=== PATIENT | female | born 1945 | race Caucasian/White ===

== ENCOUNTER 2024-02-28 09:44 | Inpatient (IN) | payer OTHER ==
[~2024-02-28] VITALS: Ht 157.5 cm; Wt 77.1 kg
[2024-02-28 11:16] LABS: Basophils # (auto) 0 10 ^3/uL (0-0.2); Basophils % (auto) 0.7 % (0.0-2.0); Eosinophils # (auto) 0.1 10 ^3/uL (0-0.8); Eosinophils % (auto) 1.6 % (0.0-7.0); Hematocrit 40.4 % (36.0-46.0); Hemoglobin 13.9 g/dL (12.2-16.2); Lymphocytes % (auto) 14.3 % (10.0-50.0); Mean Corpuscular Hemoglobin 29.1 pg (28.0-32.0); Mean Corpuscular Hgb Conc. 34.4 g/dL (32.0-36.0); Mean Corpuscular Volume 84.6 fL (80.0-100.0); Monocytes # (auto) 0.5 10 ^3/uL (0-1.3); Monocytes % (auto) 6.9 % (0.0-12.0); Neutrophils # (auto) 5.4 10 ^3/uL (1.6-8.6); Neutrophils % (auto) 76.5 % (37.0-80.0); Nucleated Red Blood Cells % 0.1 %; Platelet Count (auto) 259 10^3/uL (140-450); Red Blood Cells 4.78 10^6/uL (4.0-5.20); Red Cell Distribution Width 14.9 % (11.8-14.3)
[2024-02-28 11:33] LABS: Alanine Aminotransferase 342 U/L (7-40); Albumin 4.5 g/dL (3.2-4.8); Alkaline Phosphatase 381 U/L (46-116); Anion Gap 10 (5-15); Aspartate Aminotransferase 331 U/L (13-40); BUN/Creatinine Ratio 8.9 (10.0-20.0); Bilirubin, Total 4.3 mg/dL (0.2-1.0); Blood Urea Nitrogen 11 mg/dL (9-23); Calcium 10.1 mg/dL (8.7-10.4); Carbon Dioxide 23 mmol/L (20-30); Chloride 106 mmol/L (98-107); Glucose 99 mg/dL (74-106); Potassium 4.3 mmol/L (3.5-5.1); Sodium 139 mmol/L (136-145); Total Protein 7.5 g/dL (5.7-8.2)
[2024-02-28 11:43] LABS: Urine Bacteria FEW /hpf (None Seen); Urine Blood TRACE /uL (Negative); Urine Clarity Ex.Turbid (Clear); Urine Color Dark-Orange (Yellow); Urine Hyaline Cast FEW /lpf (0 - 2); Urine Mucus FEW (None Seen); Urine Protein, UAD 1+ (Negative); Urine Specific Gravity 1.024 (1.001-1.035); Urine Urobilinogen 4 mg/dL (Negative); Urine WBC 12 /hpf (0 - 5); Urine pH 5.5 (5.0-9.0)
[2024-02-28] MEDS: SODIUM CHLORIDE 0.9% 500 ML IVB ONE (13:45)
[2024-02-28] MEDS: SODIUM CHLORIDE 0.9% 1,000 ML IV SCH (16:30)
[2024-02-28 17:20] LABS: Triglycerides 107 mg/dL (< 150)
[2024-02-28 17:21] LABS: LDL Cholesterol 131 mg/dL (< 100)
[2024-02-28 17:22] LABS: Cholesterol 222 mg/dL (< 200); HDL Cholesterol 71 mg/dL (40-59)
[2024-02-28] MEDS: levoFLOXacin 500MG 100 ML IV ONE (20:49)
[2024-02-28 23:24] VITALS: PULSE 68; RESP 17; O2SAT 96
[2024-02-28] MEDS ORDERED: PAR20T PO (23:44)
[2024-02-28] MEDS ORDERED: LEVO-848 PO (23:44)
[2024-02-28] MEDS ORDERED: ESOM1CAP37 PO (23:44)
[2024-02-28] MEDS ORDERED: AML5T PO (23:44)
[2024-02-29 06:38] LABS: Basophils # (auto) 0.1 10 ^3/uL (0-0.2); Basophils % (auto) 0.9 % (0.0-2.0); Eosinophils # (auto) 0.1 10 ^3/uL (0-0.8); Eosinophils % (auto) 2.2 % (0.0-7.0); Hematocrit 35.4 % (36.0-46.0); Hemoglobin 11.6 g/dL (12.2-16.2); Lymphocytes # (auto) 1.7 10 ^3/uL (0.4-5.4); Lymphocytes % (auto) 26.3 % (10.0-50.0); Mean Corpuscular Hemoglobin 27.8 pg (28.0-32.0); Mean Corpuscular Hgb Conc. 32.7 g/dL (32.0-36.0); Monocytes # (auto) 0.6 10 ^3/uL (0-1.3); Monocytes % (auto) 8.6 % (0.0-12.0); Neutrophils # (auto) 4.1 10 ^3/uL (1.6-8.6); Platelet Count (auto) 220 10^3/uL (140-450); Red Blood Cells 4.17 10^6/uL (4.0-5.20); Red Cell Distribution Width 14.8 % (11.8-14.3); White Blood Cell 6.6 10^3/uL (4.4-10.8)
[2024-02-29 06:42] LABS: Alanine Aminotransferase 212 U/L (7-40); Albumin 3.7 g/dL (3.2-4.8); Alkaline Phosphatase 287 U/L (46-116); Anion Gap 9 (5-15); Aspartate Aminotransferase 133 U/L (13-40); BUN/Creatinine Ratio 15.5 (10.0-20.0); Blood Urea Nitrogen 16 mg/dL (9-23); Calcium 9.2 mg/dL (8.7-10.4); Carbon Dioxide 22 mmol/L (20-30); Chloride 109 mmol/L (98-107); Glucose 93 mg/dL (74-106); Potassium 3.6 mmol/L (3.5-5.1); Sodium 140 mmol/L (136-145)
[2024-02-29 06:43] LABS: Bilirubin, Total 1.1 mg/dL (0.2-1.0); Total Protein 6.1 g/dL (5.7-8.2)
[2024-02-29 08:30] VITALS: BP 121/72; PULSE 63; RESP 17; TEMP 97.8; O2SAT 96
[2024-02-29 12:30] VITALS: BP 129/71; PULSE 58; RESP 17; TEMP 97.7; O2SAT 95
[2024-02-29 16:48] VITALS: BP 126/79; PULSE 68; RESP 19; TEMP 97.9; O2SAT 96
[2024-02-29 21:00] VITALS: BP 143/86; PULSE 63; TEMP 98.2; O2SAT 96
[2024-03-01 01:00] VITALS: BP 143/65; PULSE 61; RESP 20; TEMP 98; O2SAT 96
[2024-03-01 05:00] VITALS: BP 111/63; PULSE 70; RESP 20; TEMP 97.8; O2SAT 95
[2024-03-01 08:17] VITALS: BP 111/62; PULSE 55; RESP 16; TEMP 97.1; O2SAT 96
[2024-03-01 11:29] LABS: Basophils # (auto) 0.1 10 ^3/uL (0-0.2); Eosinophils # (auto) 0.1 10 ^3/uL (0-0.8); Eosinophils % (auto) 2.6 % (0.0-7.0); Hematocrit 37.4 % (36.0-46.0); Hemoglobin 12.4 g/dL (12.2-16.2); Lymphocytes # (auto) 1.6 10 ^3/uL (0.4-5.4); Lymphocytes % (auto) 29.6 % (10.0-50.0); Mean Corpuscular Hemoglobin 28.4 pg (28.0-32.0); Mean Corpuscular Hgb Conc. 33.2 g/dL (32.0-36.0); Mean Corpuscular Volume 85.4 fL (80.0-100.0); Monocytes # (auto) 0.4 10 ^3/uL (0-1.3); Monocytes % (auto) 7.4 % (0.0-12.0); Neutrophils # (auto) 3.2 10 ^3/uL (1.6-8.6); Neutrophils % (auto) 59.4 % (37.0-80.0); Platelet Count (auto) 250 10^3/uL (140-450); Red Blood Cells 4.38 10^6/uL (4.0-5.20); Red Cell Distribution Width 15.4 % (11.8-14.3); White Blood Cell 5.4 10^3/uL (4.4-10.8)
[2024-03-01 11:43] LABS: INR 1.01 (0.9-1.15); Partial Thromboplastin Time 23.1 SEC (24.5-34.5); Prothrombin Time 10.7 sec (9.3-11.8)
[2024-03-01 11:47] LABS: Alanine Aminotransferase 161 U/L (7-40); Albumin 4.2 g/dL (3.2-4.8); Alkaline Phosphatase 266 U/L (46-116); Anion Gap 7 (5-15); Aspartate Aminotransferase 64 U/L (13-40); BUN/Creatinine Ratio 15.4 (10.0-20.0); Bilirubin, Total 0.6 mg/dL (0.2-1.0); Blood Urea Nitrogen 14 mg/dL (9-23); Calcium 9.7 mg/dL (8.7-10.4); Carbon Dioxide 25 mmol/L (20-30); Chloride 109 mmol/L (98-107); Glucose 105 mg/dL (74-106); Potassium 3.8 mmol/L (3.5-5.1); Sodium 141 mmol/L (136-145)
[2024-03-01 11:48] LABS: Total Protein 6.8 g/dL (5.7-8.2)
[2024-03-01 13:00] VITALS: BP 114/60; PULSE 75; RESP 17; TEMP 96.6; O2SAT 95
[2024-03-01 16:35] VITALS: BP 122/65; PULSE 73; RESP 17; TEMP 97.3; O2SAT 98
[2024-03-01 18:11] LABS: COVID19 ANTIGEN SOFIA FIA NEGATIVE (NEGATIVE)
[2024-03-01] MEDS: PANTOPRAZOLE 40 MG TAB PO ONE (18:47)
[2024-03-01] MEDS: GADOTERATE MEG 10 MMOL/20ml INJ (0.5MMOL/ml) IV ONE (18:56)
[2024-03-01 21:00] VITALS: BP 121/62; PULSE 66; RESP 18; TEMP 98.2; O2SAT 96
[2024-03-01 22:40] LABS: Amphetamine Screen, Urine Neg (NEGATIVE); Barbiturate Scree,Urine Neg (NEGATIVE); Benzodiazephine Screen, Urine Neg (NEGATIVE); Cannabinoid Screen, Urine Neg (NEGATIVE); Cocaine Screen, Urine Neg (NEGATIVE); Opiate Scree,Urine Neg (NEGATIVE); Phencyclidine Screen, Urine Neg (NEGATIVE)
[2024-03-02 05:00] VITALS: BP 123/64; PULSE 62; RESP 18; O2SAT 97
[2024-03-02 05:22] LABS: Alanine Aminotransferase 119 U/L (7-40); Albumin 3.7 g/dL (3.2-4.8); Alkaline Phosphatase 212 U/L (46-116); Anion Gap 7 (5-15); Aspartate Aminotransferase 44 U/L (13-40); BUN/Creatinine Ratio 15.3 (10.0-20.0); Blood Urea Nitrogen 15 mg/dL (9-23); Calcium 9.4 mg/dL (8.7-10.4); Carbon Dioxide 26 mmol/L (20-30); Chloride 110 mmol/L (98-107); Glucose 99 mg/dL (74-106); Lipase 54 U/L (12-53); Potassium 4.1 mmol/L (3.5-5.1); Sodium 143 mmol/L (136-145)
[2024-03-02 05:23] LABS: Bilirubin, Total 0.5 mg/dL (0.2-1.0); Creatine Kinase IFCC 51 U/L (34-145); Total Protein 6.3 g/dL (5.7-8.2)
[2024-03-02] MEDS ORDERED: PANTOPRAZOLE 40 MG TAB PO SCH (06:00)
[2024-03-02] MEDS: LEVOTHYROXINE SODIUM 50 MCG TAB PO SCH (06:37)
[2024-03-02 08:55] VITALS: BP 135/67; PULSE 63; RESP 16; TEMP 96.8; O2SAT 94
[2024-03-02] MEDS: PANTOPRAZOLE 40 MG TAB PO SCH (09:57)
[2024-03-02] MEDS: PARoxetine 20 MG TAB PO SCH (09:57)
[2024-03-02] MEDS: amLODIPine BESYLATE 5 MG TAB PO SCH (09:58)
[2024-03-02] MEDS: SODIUM CHLORIDE 0.9% 1,000 ML IV SCH (10:15)
[2024-03-02 13:00] VITALS: BP 127/79; PULSE 56; RESP 16; TEMP 98; O2SAT 95
[2024-03-02 16:38] VITALS: BP 121/58; PULSE 61; RESP 16; TEMP 98; O2SAT 97
[2024-03-02 21:00] VITALS: BP 115/70; PULSE 60; RESP 20; TEMP 98.1; O2SAT 96
[2024-03-03] VITALS (7 sets, daily range): BP systolic 118–135; BP diastolic 59–79; PULSE 51–65; RESP 16–18; TEMP 97.1–98.3; O2SAT 94–96
[2024-03-03 07:16] LABS: Alanine Aminotransferase 94 U/L (7-40); Albumin 3.7 g/dL (3.2-4.8); Alkaline Phosphatase 194 U/L (46-116); Aspartate Aminotransferase 32 U/L (13-40); BUN/Creatinine Ratio 14.3 (10.0-20.0); Blood Urea Nitrogen 13 mg/dL (9-23); Calcium 9.2 mg/dL (8.7-10.4); Chloride 111 mmol/L (98-107); Glucose 88 mg/dL (74-106); Lipase 44 U/L (12-53); Potassium 3.9 mmol/L (3.5-5.1); Sodium 144 mmol/L (136-145)
[2024-03-03 07:17] LABS: Bilirubin, Total 0.5 mg/dL (0.2-1.0); Total Protein 6.3 g/dL (5.7-8.2)
[2024-03-03 07:36] LABS: Anion Gap 6 (5-15); Carbon Dioxide 27 mmol/L (20-30)
[2024-03-03 08:42] LABS: Hepatitis B Surface Antigen Negative (Negative)
[2024-03-03 09:03] LABS: Hepatitis A Ab IgM Negative
[2024-03-03 09:04] LABS: Hepatitis B Core IgM Negative; Hepatitis C Antibody Negative (Negative)
[2024-03-03 22:24] LABS: Rapid Influenza A Negative (Negative); Rapid Influenza B Negative (Negative)
[2024-03-04] VITALS (7 sets, daily range): BP systolic 123–156; BP diastolic 54–78; PULSE 52–69; RESP 16–20; TEMP 97.9–98.2; O2SAT 96–98
[2024-03-04 06:02] LABS: Alanine Aminotransferase 71 U/L (7-40); Alkaline Phosphatase 185 U/L (46-116); Anion Gap 5 (5-15); BUN/Creatinine Ratio 11.5 (10.0-20.0); Blood Urea Nitrogen 10 mg/dL (9-23); Calcium 9.3 mg/dL (8.7-10.4); Carbon Dioxide 28 mmol/L (20-30); Chloride 111 mmol/L (98-107); Glucose 87 mg/dL (74-106); Potassium 3.7 mmol/L (3.5-5.1); Sodium 144 mmol/L (136-145)
[2024-03-04 06:03] LABS: Albumin 3.7 g/dL (3.2-4.8); Aspartate Aminotransferase 23 U/L (13-40)
[2024-03-04 06:04] LABS: Bilirubin, Total 0.5 mg/dL (0.2-1.0)
[2024-03-04] MEDS: levoFLOXacin 500 MG TAB PO SCH (19:04)
[2024-03-05] VITALS (8 sets, daily range): BP systolic 117–158; BP diastolic 59–73; PULSE 51–71; RESP 18–20; TEMP 97.5–98.2; O2SAT 94–100
[2024-03-05] MEDS: IBUPROFEN 600 MG TAB PO PRN (11:53)
[2024-03-05 12:11] LABS: Alanine Aminotransferase 65 U/L (7-40); Albumin 4.2 g/dL (3.2-4.8); Alkaline Phosphatase 216 U/L (46-116); Anion Gap 6 (5-15); Aspartate Aminotransferase 20 U/L (13-40); BUN/Creatinine Ratio 6.3 (10.0-20.0); Bilirubin, Total 0.6 mg/dL (0.2-1.0); Blood Urea Nitrogen 6 mg/dL (9-23); Calcium 9.5 mg/dL (8.7-10.4); Carbon Dioxide 27 mmol/L (20-30); Chloride 108 mmol/L (98-107); Glucose 84 mg/dL (74-106); Potassium 3.8 mmol/L (3.5-5.1); Sodium 141 mmol/L (136-145)
[2024-03-05 12:47] LABS: Actin (Smooth Muscle) Antibody 4 Units (0-19); Anti-Centromere B Antibody <0.2 AI (0.0-0.9); Anti-Jo-1 Antibody <0.2 AI (0.0-0.9); Anti-dsDNA Antibody 1 IU/mL (0-9); Antichromatin Antibody <0.2 AI (0.0-0.9); Antiscleroderma-70 Antibody <0.2 AI (0.0-0.9); Mitochondrial (M2) Antibody <20.0 Units (0.0-20.0); RNP Antibody 0.2 AI (0.0-0.9); Sjogren's Anti-SS-A Antibody <0.2 AI (0.0-0.9); Sjogren's Anti-SS-B Antibody <0.2 AI (0.0-0.9); Smith Antibody <0.2 AI (0.0-0.9)
[2024-03-05] MEDS ORDERED: traMADol HCL 50 MG TAB PO PRN (13:30)
[2024-03-06] VITALS (7 sets, daily range): BP systolic 108–166; BP diastolic 52–65; PULSE 50–61; RESP 18–20; TEMP 97.8–98.4; O2SAT 96–98
[2024-03-07] VITALS (7 sets, daily range): BP systolic 115–147; BP diastolic 50–66; PULSE 50–56; RESP 15–18; TEMP 97.5–98.2; O2SAT 96–97
[2024-03-07] MEDS: amLODIPine BESYLATE 5 MG TAB PO SCH (10:10)
[2024-03-07 11:49] LABS: Albumin 4.2 g/dL (3.2-4.8); Alkaline Phosphatase 217 U/L (46-116); Anion Gap 5 (5-15); Aspartate Aminotransferase 16 U/L (13-40); Calcium 9.7 mg/dL (8.7-10.4); Carbon Dioxide 25 mmol/L (20-30); Chloride 109 mmol/L (98-107); Glucose 100 mg/dL (74-106); Potassium 3.6 mmol/L (3.5-5.1); Sodium 139 mmol/L (136-145)
[2024-03-07 11:50] LABS: Bilirubin, Total 0.6 mg/dL (0.2-1.0)
[2024-03-07 11:55] LABS: Alanine Aminotransferase 42 U/L (7-40)
[2024-03-07 12:05] LABS: BUN/Creatinine Ratio 5.1 (10.0-20.0); Blood Urea Nitrogen < 5 mg/dL (9-23)
[2024-03-08 01:10] VITALS: BP 117/60; PULSE 58; RESP 17; TEMP 98.1; O2SAT 95
[2024-03-08 05:00] VITALS: BP 129/54; PULSE 57; RESP 18; TEMP 98; O2SAT 96
[2024-03-08 09:00] VITALS: BP 115/60; PULSE 56; RESP 16; TEMP 98.1; O2SAT 97
[2024-03-08 12:38] VITALS: BP 123/70; PULSE 52; RESP 15; TEMP 98.2; O2SAT 96
[2024-03-08 17:30] VITALS: BP 124/75; PULSE 58; RESP 16; TEMP 97.8; O2SAT 99
[2024-03-08 21:00] VITALS: BP 120/53; PULSE 55; RESP 19; TEMP 98.6; O2SAT 95
[2024-03-09] VITALS (7 sets, daily range): BP systolic 114–142; BP diastolic 45–61; PULSE 54–69; RESP 15–18; TEMP 97.7–98.8; O2SAT 90–96
[2024-03-09 07:09] LABS: Alanine Aminotransferase 27 U/L (7-40); Alkaline Phosphatase 175 U/L (46-116); Anion Gap 8 (5-15); Calcium 9.1 mg/dL (8.7-10.4); Carbon Dioxide 27 mmol/L (20-30); Chloride 109 mmol/L (98-107); Potassium 3.4 mmol/L (3.5-5.1); Sodium 144 mmol/L (136-145)
[2024-03-09 07:11] LABS: Albumin 3.7 g/dL (3.2-4.8); Aspartate Aminotransferase 14 U/L (13-40); Glucose 96 mg/dL (74-106)
[2024-03-09 07:13] LABS: Bilirubin, Total 0.5 mg/dL (0.2-1.0); Total Protein 6.1 g/dL (5.7-8.2)
[2024-03-09 07:16] LABS: Basophils # (auto) 0.1 10 ^3/uL (0-0.2); Basophils % (auto) 0.8 % (0.0-2.0); Eosinophils # (auto) 0.1 10 ^3/uL (0-0.8); Hematocrit 35.5 % (36.0-46.0); Hemoglobin 11.9 g/dL (12.2-16.2); Lymphocytes # (auto) 2.6 10 ^3/uL (0.4-5.4); Lymphocytes % (auto) 39.6 % (10.0-50.0); Mean Corpuscular Hemoglobin 28.2 pg (28.0-32.0); Mean Corpuscular Hgb Conc. 33.5 g/dL (32.0-36.0); Mean Corpuscular Volume 84.2 fL (80.0-100.0); Monocytes # (auto) 0.5 10 ^3/uL (0-1.3); Monocytes % (auto) 7.7 % (0.0-12.0); Neutrophils # (auto) 3.2 10 ^3/uL (1.6-8.6); Neutrophils % (auto) 49.9 % (37.0-80.0); Nucleated Red Blood Cells % 0.2 %; Platelet Count (auto) 280 10^3/uL (140-450); Red Blood Cells 4.22 10^6/uL (4.0-5.20); Red Cell Distribution Width 14.8 % (11.8-14.3); White Blood Cell 6.5 10^3/uL (4.4-10.8)
[2024-03-09 07:20] LABS: BUN/Creatinine Ratio 5.1 (10.0-20.0); Blood Urea Nitrogen < 5 mg/dL (9-23)
[2024-03-10] VITALS (7 sets, daily range): BP systolic 116–135; BP diastolic 48–65; PULSE 18–62; RESP 16–20; TEMP 98–98.3; O2SAT 94–97
[2024-03-10 06:40] LABS: Basophils # (auto) 0.1 10 ^3/uL (0-0.2); Basophils % (auto) 0.9 % (0.0-2.0); Eosinophils # (auto) 0.2 10 ^3/uL (0-0.8); Eosinophils % (auto) 2.1 % (0.0-7.0); Hematocrit 35.5 % (36.0-46.0); Lymphocytes # (auto) 2.8 10 ^3/uL (0.4-5.4); Lymphocytes % (auto) 38.7 % (10.0-50.0); Mean Corpuscular Hemoglobin 28.5 pg (28.0-32.0); Mean Corpuscular Hgb Conc. 33.7 g/dL (32.0-36.0); Mean Corpuscular Volume 84.4 fL (80.0-100.0); Monocytes # (auto) 0.5 10 ^3/uL (0-1.3); Monocytes % (auto) 7.1 % (0.0-12.0); Neutrophils # (auto) 3.7 10 ^3/uL (1.6-8.6); Neutrophils % (auto) 51.2 % (37.0-80.0); Nucleated Red Blood Cells % 0.2 %; Platelet Count (auto) 282 10^3/uL (140-450); Red Cell Distribution Width 14.9 % (11.8-14.3); White Blood Cell 7.3 10^3/uL (4.4-10.8)
[2024-03-10 07:18] LABS: Alanine Aminotransferase 24 U/L (7-40); Albumin 3.6 g/dL (3.2-4.8); Alkaline Phosphatase 176 U/L (46-116); Anion Gap 3 (5-15); Aspartate Aminotransferase 12 U/L (13-40); BUN/Creatinine Ratio 5.2 (10.0-20.0); Bilirubin, Total 0.5 mg/dL (0.2-1.0); Blood Urea Nitrogen 5 mg/dL (9-23); Calcium 9.4 mg/dL (8.7-10.4); Carbon Dioxide 29 mmol/L (20-30); Chloride 110 mmol/L (98-107); Glucose 90 mg/dL (74-106); Potassium 3.3 mmol/L (3.5-5.1); Sodium 142 mmol/L (136-145); Total Protein 5.9 g/dL (5.7-8.2)
[2024-03-10] MEDS: POTASSIUM EFFERVESENT TAB 25 MEQ PO ONE (15:39)
[2024-03-11 01:00] VITALS: BP 116/54; PULSE 62; RESP 20; TEMP 98.6; O2SAT 98
[2024-03-11 03:30] VITALS: BP 120/61; PULSE 74; RESP 18; TEMP 98.6; O2SAT 94
[2024-03-11 04:08] VITALS: BP 120/61; PULSE 74; RESP 18; TEMP 98.6; O2SAT 94
== END 2024-03-11 05:00 | disposition short-term general hospital (02) | DRG 445 ==
LOC: ER 09:44 → OVERFLOW 16:24 → WEST WING 22:55
PROVIDERS: ADMIT Nurse Practitioner Family; ATTEND Nurse Practitioner Acute Care
DX: K80.70 Calculus of gallbladder and bile duct without cholecystitis without obstruction (principal); N39.0 Urinary tract infection, site not specified; K21.9 Gastro-esophageal reflux disease without esophagitis; E66.01 Morbid (severe) obesity due to excess calories; N28.1 Cyst of kidney, acquired; E03.9 Hypothyroidism, unspecified; I10 Essential (primary) hypertension; K57.30 Diverticulosis of large intestine without perforation or abscess without bleeding; K75.81 Nonalcoholic steatohepatitis (NASH); Z90.710 Acquired absence of both cervix and uterus; Z88.0 Allergy status to penicillin; Z82.49 Family history of ischemic heart disease and other diseases of the circulatory system; Z82.3 Family history of stroke; Z80.3 Family history of malignant neoplasm of breast; Z68.31 Body mass index [BMI] 31.0-31.9, adult; Z85.828 Personal history of other malignant neoplasm of skin
CPT/HCPCS: 36415; 71045; 71046; 74176; 74181; 76700; 78226; 80053; 80061; 80074; 80307; 81001; 82140; 82248; 82550; 82728; 83010; 83516; 83615; 83690; 84443; 85025; 85610; 85730; 86225; 86235; 87086; 87426; 87804; 96361; 96365; G0378; J1956

== ENCOUNTER 2024-08-19 09:01 | Emergency (ER) | payer OTHER ==
[~2024-08-19] VITALS: Ht 157.5 cm; Wt 77.5 kg
[~2024-08-19 09:01] MED LIST: AML5T PO; ESOM1CAP37 PO; LEVO-848 PO; PAR20T PO
[2024-08-19 10:02] VITALS: TEMP 98.1
[2024-08-19 10:03] VITALS: PULSE 85; RESP 20; O2SAT 98
[2024-08-19] MEDS: cloNIDine HCL 0.1 MG TAB PO ONE (10:07)
[2024-08-19] MEDS: ACETAMINOPHEN 325 MG TAB PO ONE (10:07)
--- NOTE | 2024-08-19 10:28 | ED.PDOC ---
History of Present Illness HPI Comments 78 y/o F, with PMHX of HTN presents to the ED for CC of high blood pressure. Patient states, that she has been experiencing abnormally high blood pressure reading since this morning; patient blood pressure at home was in the 170's. Patient endorses on, previously being prescribed Amlodipine for her hypertension and recently starting back up on the medication this week. Patient's blood pressure in triage was 156/71. Patient [id number] chest pain, shortness or breath, palpitations, dizziness, or headache. Chief Complaint: High Blood Pressure Time Seen by MD: 09:30 Primary Care Provider: NONE Reviewed Notes: Nurses Notes, Medications, Allergies Allergies: Coded Allergies: Morphine (Verified Allergy, Unknown, 02/28/24) Penicillins (Verified Allergy, Unknown, 02/28/24) Home Meds Reported Medications Levothyroxine Sodium (SYNTHROID TABLET) 50 Mcg Tb, 1 TAB PO DAILY, #30 TAB 5 Refills 02/28/24 Amlodipine Besylate (NORVASC TABLET) 5 Mg Tb, 1 TAB PO DAILY, #30 TAB 5 Refills 02/28/24 Esomeprazole Magnesium (Esomeprazole Magnesium) 20 Mg Cap, 20 MG PO, CAP 02/28/24 Paroxetine (PAXIL TABLET) 20 Mg Tb, 1 TAB PO DAILY, #30 TAB 5 Refills 02/28/24 Information Source: Patient Mode of Arrival: Ambulatory Severity: Mild Timing: Hours Duration: Since onset Prehospital treatment: None Past Medical History PAST MEDICAL HISTORY: GERD, HTN, Thyroid Surgical History: Hysterectomy, Tonsillectomy Family History Family History: Reviewed,noncontributory to illness Social History Smoker: Non-Smoker Alcohol: Denies ETOH Use Drugs: Denies Drug Use Lives In: Home Constitutional: denies: chills, diaphoresis, fatigue, fever, malaise, sweats, weakness, others EENTM: denies: blurred vision, double vision, ear bleeding, ear discharge, ear drainage, ear pain, ear ringing, eye pain, eye redness, hearing loss, mouth pain, mouth swelling, nasal discharge, nose bleeding, nose congestion, nose pain, photophobia, tearing, throat pain, throat swelling, voice changes, others Respiratory: denies: cough, hemoptysis, orthopnea, SOB at rest, shortness of breath, SOB with excertion, stridor, wheezing, others Cardiovascular: denies: chest pain, dizzy spells, diaphoresis, Dyspnea on exertion, edema, irregular heart beat, left arm pain, lightheadedness, palpitations, PND, syncope, others Gastrointestinal: denies: abdomen distended, abdominal pain, blood streaked bowels, constipated, diarrhea, dysphagia, difficulty swallowing, hematemesis, melena, nausea, poor appetite, poor fluid intake, rectal bleeding, rectal pain, vomiting, others Genitourinary: denies: abnormal vagina bleeding, burning, dyspareunia, dysuria, flank pain, frequency, hematuria, incontinence, pain, , vagina discharge, urgency, others Neurological: reports: headache; denies: dizziness, fainting, left sided numbness, left sided weakness, numbness, paresthesia, pre-existing deficit, right sided numbness, right sided weakness, seizure, speech problems, tingling, tremors, weakness, others Musculoskeletal: denies: back pain, gout, joint pain, joint swelling, muscle pain, muscle stiffness, neck pain, others Integumetry: denies: bruises, change in color, change in hair/nails, dryness, laceration, lesions, lumps, rash, wounds, others Allergic/Immunocompromised: denies: Difficulty Healing, Frequent Infections, Hives, Itching, others Hematologic/Lymphatic: denies: anemia, blood clots, easy bleeding, easy bruising, swollen glands, others Endocrine: denies: excessive hunger, excessive sweating, excessive thirst, excessive urination, flushing, intolerance to cold, intolerance to heat, unexplained weight gain, unexplained weight loss, others Psychiatric: denies: anxiety, bipolar disorder, depression, hopeless, panic disorder, schizophrenia, sleepless, suicidal, others All Other Systems: Reviewed and Negative Physical Exam General Appearance: Moderate Distress HEENT: Normal ENT Inspection, Pharynx Normal, TMs Normal Neck: Full Range of Motion, Non-Tender, Normal, Normal Inspection Respiratory: Chest Non-Tender, Lungs Clear, No Accessory Muscle Use, No Respiratory Distress, Normal Breath Sounds Cardiovascular: No Edema, No JVD, No Murmur, No Gallop, Normal Peripheral Pulses, Regular Rate/Rhythm Breast Exam: Deferred Gastrointestinal: No Organomegaly, Non Tender, No Pulsatile Mass, Normal Bowel Sounds, Soft Genitalia: Deferred Pelvic: Deferred Rectal: Deferred Extremities: No calf tenderness, Normal capillary refill, Normal inspection, Normal range of motion, Non-tender, No pedal edema Musculoskeletal : Apperance: Normal Neurologic: Alert, freight manager II-XII nml as Tested, No Motor Deficits, Normal Affect, Normal Mood, No Sensory Deficits Cerebellar Function: Normal Reflexes: Normal Skin: Dry, Normal Color, Warm Peripheral Pulses: 3+ Radial (R), 3+ Radial (L) Lymphatic: No Adenopathy Was a procedure done? Was a procedure done?: No Differential Dx Considerations may include: hypertensive episode X-Ray, Labs, Meds, VS Vital Signs Date Time Temp Pulse Resp B/P (MAP) Pulse Ox O2 Delivery O2 Flow Rate FiO2 08/19/24 10:55 63 17 118/64 (82) 95 08/19/24 10:54 118/64 08/19/24 10:07 138/107 08/19/24 10:03 85 20 98 Room Air* 0 21 08/19/24 10:02 98.1 62 18 138/107 (117) 95 98.1 08/19/24 09:19 97.9 75 17 156/71 (99) 96 Current Medications Medications (Trade) Dose Ordered Sig/Akhil Route Start Time Stop Time Status Last Admin Clonidine HCl (Catapres Tablet) 0.1 mg ONCE ONCE PO 08/19/24 10:00 08/19/24 10:01 DC 08/19/24 10:07 Acetaminophen (Tylenol Tablet) 650 mg ONCE ONCE PO 08/19/24 10:15 08/19/24 10:16 DC 08/19/24 10:07 Patient alert. Blood pressure normalized. Was given clonidine. Vitals stable. No sign of distress. Saturation pristine on room air. No leg swelling. No headache. No dizziness. No need to image. Physical examination pristine. Explained to the patient. Was told to follow up with her primary care physician. Was told to come back if there is any problem. Time of 1ST Reevaluation: 10:00 Reevaluation 1ST: Unchanged Patient Education/Counseling: Diagnosis, Treatment Family Education/Counseling: No Family Present Departure 1 Departure Time of Disposition: 11:58 Impression: Primary Impression: HTN (hypertension) Qualified Codes: I10 - Essential (primary) hypertension Disposition: HOME / SELF CARE / HOMELESS Condition: Good Discharged With: Self Critical Care Note Critical Care Time?: No Stability Stability form required: No Heart Score Heart Score: Heart Score Response (Comments) Value History N/A 0 EKG N/A 0 Age N/A 0 Risk Factors N/A 0 Troponin N/A 0 Total 0 I personally scribed for AUTUMN SPAULDING MD ([email or web address]) on 08/19/24 at 10:28. Electronically submitted by Janina Snider ([email or web address]). AUTUMN SPAULDING MD Aug 19, 2024 10:28
[2024-08-19 10:55] VITALS: BP 118/64; PULSE 63; RESP 17; O2SAT 95
== END 2024-08-19 12:12 | disposition home or self-care (01) ==
LOC: ER 09:01
DX: I10 Essential (primary) hypertension (principal); K21.9 Gastro-esophageal reflux disease without esophagitis; Z90.710 Acquired absence of both cervix and uterus; Z79.890 Hormone replacement therapy; Z79.899 Other long term (current) drug therapy; Z88.0 Allergy status to penicillin; Z88.5 Allergy status to narcotic agent